=== PATIENT | female | born 1995 | race Caucasian/White ===

== ENCOUNTER 2020-03-03 16:40 | Emergency (ER) | payer MEDICAID ==
[~2020-03-03] VITALS: Ht 157.5 cm; Wt 57.6 kg
[2020-03-03 16:45] VITALS: BP 122/80; Ht 157.5 cm; Wt 57.6 kg
== END 2020-03-03 19:22 | disposition home or self-care (01) ==
LOC: ED 16:40
DX: N61.0 Mastitis without abscess (principal); J45.909 Unspecified asthma, uncomplicated
CPT/HCPCS: 76641